=== PATIENT | male | born 1975 | race Two or more races ===

== ENCOUNTER 2023-05-08 06:15 | Day surgery (SDC) | payer OTHER ==
[~2023-05-08] VITALS: Ht 175.3 cm; Wt 77.1 kg
[2023-05-08] MEDS ORDERED: HYDROmorphone HCL 2 MG/ML VL/or syr IV PRN ×2 (07:30)
[2023-05-08] MEDS ORDERED: MORPHINE SULFATE INJ 2 MG/ml SYRG IV PRN (07:30)
[2023-05-08] MEDS ORDERED: METOCLOPRAMIDE HCL 5MG/ml INJ 2ml VIAL IV PRN (07:30)
[2023-05-08] MEDS ORDERED: ceFAZolin 2 GM/D5W100ml 100 ML IV ONE (07:31)
[2023-05-08] MEDS ORDERED: fentaNYL CITRATE 100 MCG/2 ML VL ONE (07:57)
[2023-05-08] MEDS ORDERED: SODIUM CHLORIDE LOCK 20 ML ONE (07:57)
[2023-05-08] MEDS ORDERED: PROPOFOL 10 MG/ML 20 ML IV ONE ×2 (07:57→10:07)
[2023-05-08] MEDS ORDERED: MIDAZOLAM HCL 2MG/2ML 2ml VIAL (1mg/ml) ONE (07:57)
[2023-05-08] MEDS ORDERED: ONDANSETRON HCL 4 MG/2 ML VIAL ONE (07:57)
[2023-05-08] MEDS ORDERED: DexAMETHasone SOD PHOS 10MG/1ML VIAL INJ ONE (07:57)
[2023-05-08] MEDS ORDERED: KETAMINE 50mg/ML 1ml syringe ONE ×2 (07:57→09:58)
[2023-05-08 10:31] VITALS: TEMP 97.1; O2SAT 98
[2023-05-08 11:14] VITALS: BP 131/83; PULSE 74; RESP 12; O2SAT 96
== END 2023-05-08 11:17 | disposition home or self-care (01) ==
LOC: EEVIPCON → SUR 06:15
PROVIDERS: ATTEND Student in an Organized Health Care Education/Training Program
DX: M20.12 Hallux valgus (acquired), left foot (principal)
CPT/HCPCS: 28297; 73620; 73630; 76000; C1713; C1781; J1100; J2250; J2405; J2704; J3010